=== PATIENT | female | born 1950 | race Caucasian/White ===

== ENCOUNTER 2018-12-15 10:21 | Day surgery (SDC) | payer MEDICARE, OTHER ==
[~2018-12-15] VITALS: Ht 149.9 cm; Wt 95.7 kg
[2018-12-15] VITALS (9 sets, daily range): BP systolic 137–162; BP diastolic 63–99; PULSE 66–88; RESP 16–19; Ht 149.9 cm; Wt 95.7 kg
[~2018-12-15 10:21] MED LIST: ALEN70TA5 PO; ASC500 ORAL; ATOR40TA68 PO; CARV25TA79 ORAL; CHOL100062 PO; DULA0.75 SC; GABA300C16 ORAL; HYDR-3671 ORAL; IBUP-1542 PO; LEVO125T7 ORAL; LISI10TA2 ORAL; METF100010 ORAL; NPH SC
[2018-12-15] MEDS ORDERED: SOD CHLORIDE 0.9% 1,000 ML IV SCH (11:00)
[2018-12-15] MEDS ORDERED: BUPIVACAINE 0.5% (SDV) 30 ML INJ ONE (12:36)
[2018-12-15] MEDS ORDERED: BACITRACIN/POLYMYXIN 28.35 GM OINT TOP ONE (12:37)
[2018-12-15] MEDS ORDERED: DEXAMETHASONE 4 MG/ML 1 ML INJ ONE (12:37)
[2018-12-15] MEDS ORDERED: FENTAnyl 50 MCG/ML VIAL ONE (12:57)
[2018-12-15] MEDS ORDERED: MEPERIDINE 25 MG INJ IV PRN (13:00)
[2018-12-15] MEDS ORDERED: HYDROmorphONE 1 MG/5 ML IV SYRINGE IV PRN ×2 (13:00)
[2018-12-15] MEDS ORDERED: DIPHENHYDRAMINE 50 MG INJ IV PRN (13:00)
[2018-12-15] MEDS ORDERED: hydrALAzine 20 MG INJ IV PRN (13:00)
[2018-12-15] MEDS ORDERED: FENTAnyl 50 MCG/ML VIAL IV PRN ×3 (13:00)
[2018-12-15] MEDS ORDERED: LABETALOL HCL 20MG INJ IV PRN (13:00)
[2018-12-15] MEDS ORDERED: OXYCODONE/ACETAMINOPHEN (5/325) TAB PO PRN ×2 (13:00)
[2018-12-15] MEDS ORDERED: ALBUTEROL 0.083% (NEB) 2.5 MG/3 ML AMP HHN PRN (13:00)
[2018-12-15] MEDS ORDERED: IPRATROPIUM (NEB) 0.5 MG/2.5 ML AMP HHN PRN (13:00)
[2018-12-15] MEDS ORDERED: EPHEDrine 25 MG/5 ML SYG IV PRN (13:00)
[2018-12-15] MEDS ORDERED: ONDANSETRON 4 MG INJ IV PRN (13:00)
[2018-12-15] MEDS ORDERED: PROPOFOL 20 ML ONE (13:30)
[2018-12-15] MEDS ORDERED: LIDOCAINE 100 MG SYRINGE ONE (13:30)
== END 2018-12-15 15:55 | disposition home or self-care (01) ==
LOC: SDS 10:21
PROVIDERS: ATTEND Podiatrist Primary Podiatric Medicine
DX: M20.41 Other hammer toe(s) (acquired), right foot (principal); M77.41 Metatarsalgia, right foot; E11.9 Type 2 diabetes mellitus without complications; I10 Essential (primary) hypertension; E03.9 Hypothyroidism, unspecified; Z79.84 Long term (current) use of oral hypoglycemic drugs
CPT/HCPCS: 28285; 28308; 82962; J1170; J2001; J2405; J3010; J1100